=== PATIENT | female | born 1965 | race Caucasian/White ===

== ENCOUNTER 2017-04-21 11:24 | Emergency (ER) | payer OTHER ==
[~2017-04-21] VITALS: Ht 157.5 cm; Wt 95.4 kg
[~2017-04-21 11:24] MED LIST: CLARITIN10 MG PO; FLONASE16 GM NS; GARLIC OIL1 EACH PO; SUDAFED30 MG PO; VIT C 500 MG-E500 MG PO
[2017-04-21 11:46] VITALS: BP 158/74
== END 2017-04-21 13:58 | disposition home or self-care (01) ==
LOC: EME 11:24
DX: S93.401A Sprain of unspecified ligament of right ankle, initial encounter (principal); F32.9 Major depressive disorder, single episode, unspecified; F43.10 Post-traumatic stress disorder, unspecified; F17.210 Nicotine dependence, cigarettes, uncomplicated; W17.89XA Other fall from one level to another, initial encounter; Z88.5 Allergy status to narcotic agent; Z88.6 Allergy status to analgesic agent; Z88.1 Allergy status to other antibiotic agents
CPT/HCPCS: 73610; 99281; 99283

== ENCOUNTER 2017-05-30 08:55 | Emergency (ER) | payer OTHER ==
[~2017-05-30] VITALS: Ht 157.5 cm; Wt 94.1 kg
[2017-05-30] MEDS ORDERED: NAPROXEN500 MG PO (10:15)
[2017-05-30] MEDS ORDERED: LIDODERM 5% P1 PATCH TD (10:15)
[2017-05-30 10:25] VITALS: BP 143/84
== END 2017-05-30 10:28 | disposition home or self-care (01) ==
LOC: EME 08:55
DX: M94.0 Chondrocostal junction syndrome [Tietze] (principal); G89.29 Other chronic pain; F32.9 Major depressive disorder, single episode, unspecified; Z88.5 Allergy status to narcotic agent; Z88.6 Allergy status to analgesic agent; F17.200 Nicotine dependence, unspecified, uncomplicated
CPT/HCPCS: 71046; 93005; 99281; 99285

== ENCOUNTER 2017-07-04 09:32 | Emergency (ER) | payer OTHER ==
[~2017-07-04] VITALS: Ht 157.5 cm; Wt 95.9 kg
[~2017-07-04 09:32] MED LIST changes: +LIDODERM 5% P1 PATCH TD; +NAPROXEN500 MG PO
[2017-07-04 10:44] VITALS: BP 128/86
== END 2017-07-04 10:45 | disposition home or self-care (01) ==
LOC: EME 09:32
DX: S80.01XA Contusion of right knee, initial encounter (principal); W01.0XXA Fall on same level from slipping, tripping and stumbling without subsequent striking against object, initial encounter; Y93.01 Activity, walking, marching and hiking; Z79.82 Long term (current) use of aspirin; G89.29 Other chronic pain; F17.200 Nicotine dependence, unspecified, uncomplicated; F32.9 Major depressive disorder, single episode, unspecified; Z88.5 Allergy status to narcotic agent; Z88.6 Allergy status to analgesic agent
CPT/HCPCS: 73564; 99281; 99284